=== PATIENT | female | born 1990 | race African-American/Black ===

== ENCOUNTER 2017-02-26 17:35 | Emergency (ER) | payer SELFPAY ==
[2017-02-26 18:02] LABS: Bilirubin Negative (Negative); Blood, Urine Negative (Negative); Glucose, Urine (Dipstick) Negative (Negative); Ketone, Urine Negative (Negative); Nitrite Negative (Negative); Protein, Urine (Dipstick) Negative (Neg-Trace)
[2017-02-26 18:03] LABS: Bacteria/HPF Rare-Few HPF (None Seen); Hyaline Casts/LPF 0-3 HYALINE CAST LPF (0-3 Hyaline); WBC/HPF 21-50 HPF (0-3)
[2017-02-26 18:14] LABS: Trichomonas/HPF 1+ HPF (None Seen); Yeast-All Forms None Seen HPF (None Seen)
[2017-02-26] MEDS ORDERED: Oxymetazoline HCl 0.05% ( 15 ML ) ONE (18:36)
== END 2017-02-26 18:42 | disposition home or self-care (01) ==
LOC: ERS 17:35
DX: O99.351 Diseases of the nervous system complicating pregnancy, first trimester (principal); G44.209 Tension-type headache, unspecified, not intractable; O98.311 Other infections with a predominantly sexual mode of transmission complicating pregnancy, first trimester; A59.9 Trichomoniasis, unspecified; O16.1 Unspecified maternal hypertension, first trimester; Z3A.08 8 weeks gestation of pregnancy
CPT/HCPCS: 81003; 81015; 87086; 99284

== ENCOUNTER 2017-07-21 04:23 | Day surgery (SDC) | payer OTHER ==
[2017-07-21 04:57] VITALS: BP 134/77; TEMP 98.7; BMI 48.4
--- NOTE | 2017-07-21 05:14 | PDOC.LDHP ---
Labor and Delivery H&P Chief complaint: abdominal pain, other (Patient of Dr Rincon at the [facility], here for persistant epigastric discomfort. Denies contractions, or LOF. Good FM.) HPI: 26 yo with EDC 10/12, placing her at 28 weeks and 1 day with persistent epigastric discomfort. No relief with antacids. No real radiation. No fevers, no nausea. No diarrhea. No chest pain. Review of systems: complete ROS done and as HPI. Current gestational age (weeks): 28 (1 day) Due date: 10/12/17 Dating criteria: last menstrual period Grav: 4 Para: 3 Abnormal US findings: No Past Medical History: HX WPW s/p ablation. Hx CHTN on methyldopa 250mg TID. 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: Hx trich in past Current medications: other (methly dopa) Previous surgical history: other (WPW) Allergies/Adverse Reactions: Allergies Allergy/AdvReac Type Severity Reaction Status Date / Time lisinopril Allergy Intermediate Swollen Verified 07/21/17 04:48 Lips naproxen Allergy Intermediate Swollen Verified 07/21/17 04:48 Lips - Physical Exam Vital signs reviewed and normal: yes (BP 130/70, afebrile) General: NAD Heart: RRR Lungs: CTAB Abdomen: gravid FHT: category 1 [place] contractions every: no ctx - Plan Plan: observation in L&D, other (Assessment: possible GERD vs GD pathology: Plan : 1. CBC, CMP, RUQ sono 2. Monitors for now 3. No acute distress)
[2017-07-21 05:33] LABS: #Basophils 0.1 thou/uL (0.0-0.2); #Eosinphils 0.1 thou/uL (0.0-0.7); #Lymphocytes 3.1 thou/uL (1.20-3.40); #Monocytes 0.8 thou/uL (0.11-0.59); %Basophils 0.8 % (0.0-1.0); %Eosinophils 1.2 % (0.0-10.0); %Lymphocytes 25.6 % (21.0-51.0); %Monocytes 6.5 % (0.0-10.0); Hemoglobin 9.9 g/dL (12.0-16.0); Mean Corpuscular HGB CONC 33.5 g/dL (32.0-36.0); Mean Corpuscular Hemoglobin 29.1 pg (27.0-31.0); Mean Corpuscular Volume 86.7 fl (81.0-99.0); Mean Platelet Volume 7.3 fL (7.4-10.4); Platelet Count 263 thou/uL (130-400); RBC Distribution Width 13.2 % (11.5-14.5); Red Blood Cell (RBC) Count 3.39 mill/uL (4.20-5.40); White Blood Cell (WBC) Count 12.1 thou/uL (4.8-10.8)
[2017-07-21 05:59] LABS: ALT (SGPT) 7 U/L (8-55); AST (SGOT) 8 U/L (5-34); Albumin 3.1 g/dL (3.5-5.0); Alkaline Phosphatase 89 U/L (40-150); Anion Gap 13 mmol/L (10-20); BUN (Urea Nitrogen) 5 mg/dL (7.0-18.7); Bilirubin, Total 0.2 mg/dL (0.2-1.2); Calc. Creatinine Clearance 282 mL/min (70-130); Calcium 8.6 mg/dL (7.8-10.44); Carbon Dioxide 21 mmol/L (22-29); Chloride 106 mmol/L (98-107); Estimated GFR-MDRD Greater than 90; Globulin 2.9 g/dL (2.4-3.5); Glucose 97 mg/dL (70-105); Potassium 3.7 mmol/L (3.5-5.1); Sodium 136 mmol/L (136-145)
--- NOTE | 2017-07-21 06:14 | PDOC.EVN ---
Event Note - Event Note Event Note: Follow up: Spoke with US cogeneration technician: GB stone seen that is at BD neck but not obstructed. No GB wall thoickening. No murphys sign during exam. WBC borderline at 12 LFTS wnl I will order Bentyl 20mg IM x 1 now and follow. Likely home this AM as not obstructed with Gen Surgery outpatient follow up.
--- NOTE | 2017-07-21 08:20 | ULT ---
PRELIMINARY REPORT/[facility]/EMERGENCY AFTER HOURS PROCEDURE: EXAM: US Abdomen Limited, Right Upper Quadrant EXAM DATE/TIME: Exam ordered 07/21/2017 5:44 AM CLINICAL HISTORY: 26 years old, female; Pain; Other: Upper abd pain at 27wks preg; TECHNIQUE: Real-time ultrasound of the right upper quadrant with image documentation. COMPARISON: No relevant prior studies available. FINDINGS: Liver: Normal. No mass. No intrahepatic bile duct dilation. Gallbladder: There is a 2 cm stone at the gallbladder neck. A negative sonographic Medeiros sign is rep orted. Trace gallbladder wall thickening up to 3 mm, nonspecific. Common bile duct: Common bile duct measures approximately 4. No stones. No dilation. Pancreas: The pancreas appears normal. Right kidney: RIGHT kidney measures 14.1 x 3.8 x 6.8 cm. No stones. No hydronephrosis. IMPRESSION: Cholelithiasis without ultrasound evidence of acute cholecystitis. Thank you for allowing us to participate in the care of your patient. Dictated and Authenticated by: Lew Hernandez MD 07/21/2017 6:45 AM Central Time ([place] & [place]) FINAL REPORT EMERGENCY AFTER HOURS STUDY: ULTRASOUND ABDOMEN LIMITED: (RIGHT UPPER QUADRANT) DATE: 07/21/17. TIME: 5:56 a.m. HISTORY: A 26-year-old female in late second trimester with right upper quadrant abdominal pain. FINDINGS: Gallbladder: A 20 mm calculus lodged in the neck of gallbladder. A small amount of sludge. Normal w all thickness, 3 mm. No sonographic Medeiros's sign. No pericholecystic fluid or edema. Common duct: 4 mm. Liver: Normal. Pancreas: Nonspecific sonographic appearance. Right kidney: No hydronephrosis. This report agrees with preliminary report by [facility]. IMPRESSION: 1. Positive for cholelithiasis. 2. No sonographic evidence of acute cholecystitis. MAYCOL Reddy POS: MODE
== END 2017-07-21 07:16 | disposition home or self-care (01) ==
LOC: L&D/OP 04:23
PROVIDERS: ATTEND Obstetrics & Gynecology
DX: O99.89 Other specified diseases and conditions complicating pregnancy, childbirth and the puerperium (principal); R10.13 Epigastric pain; O10.913 Unspecified pre-existing hypertension complicating pregnancy, third trimester; Z3A.28 28 weeks gestation of pregnancy; Z79.899 Other long term (current) drug therapy; Z88.8 Allergy status to other drugs, medicaments and biological substances; Z88.6 Allergy status to analgesic agent
CPT/HCPCS: 36415; 59025; 76705; 80053; 85025; 99283

== ENCOUNTER 2017-12-01 16:43 | Emergency (ER) | payer OTHER ==
[2017-12-01] MEDS ORDERED: Ketorolac Tromethamine 30 MG/ML VIAL ONE (17:46)
== END 2017-12-01 17:57 | disposition home or self-care (01) ==
LOC: ERS 16:43
DX: K02.9 Dental caries, unspecified (principal); I10 Essential (primary) hypertension; I45.6 Pre-excitation syndrome; Z87.891 Personal history of nicotine dependence
CPT/HCPCS: 96372; J1885

== ENCOUNTER 2017-12-04 01:28 | Emergency (ER) | payer OTHER | END 2017-12-04 02:21 | disposition home or self-care (01) | LOC: ERS 01:28 | DX: K08.89 Other specified disorders of teeth and supporting structures (principal); I10 Essential (primary) hypertension; I45.6 Pre-excitation syndrome; Z87.891 Personal history of nicotine dependence; Z79.899 Other long term (current) drug therapy | CPT/HCPCS: 99282 ==

== ENCOUNTER 2017-12-16 12:14 | Emergency (ER) | payer OTHER | END 2017-12-16 14:24 | disposition left against medical advice (07) | LOC: ERS 12:14 | DX: Z53.21 Procedure and treatment not carried out due to patient leaving prior to being seen by health care provider (principal) ==

== ENCOUNTER 2018-01-25 19:14 | Emergency (ER) | payer OTHER, SELFPAY | END 2018-01-25 20:02 | disposition home or self-care (01) | LOC: ERS 19:14 | DX: K12.0 Recurrent oral aphthae (principal); K02.9 Dental caries, unspecified; I10 Essential (primary) hypertension; I45.6 Pre-excitation syndrome; Z87.891 Personal history of nicotine dependence; Z79.899 Other long term (current) drug therapy | CPT/HCPCS: 99282 ==

== ENCOUNTER 2018-11-10 17:14 | Emergency (ER) | payer SELFPAY | END 2018-11-10 18:59 | disposition home or self-care (01) | LOC: ERS 17:14 | DX: B35.4 Tinea corporis (principal); I10 Essential (primary) hypertension; G20 Parkinson's disease; Z87.891 Personal history of nicotine dependence | CPT/HCPCS: 99282 ==

== ENCOUNTER 2018-11-14 02:53 | Emergency (ER) | payer SELFPAY ==
[2018-11-14] MEDS ORDERED: Ondansetron PF 4 MG/2 ML Vial ONE (03:18)
[2018-11-14] MEDS ORDERED: Morphine 4 MG/ML VIAL ONE ×2 (03:18→03:44)
[2018-11-14 03:39] LABS: Bilirubin Negative (Negative); Blood, Urine Trace (Negative); Glucose, Urine (Dipstick) Negative (Negative); Leukocyte Small (Negative); Nitrite Negative (Negative); Protein, Urine (Dipstick) Negative (Neg-Trace); Urobilinogen 0.2 mg/dL (0.2-1.0)
[2018-11-14 03:40] LABS: Clarity Clear (Clear)
[2018-11-14 03:47] LABS: Bacteria/HPF None Seen HPF (None Seen); Squamous Epithelial 0-3 HPF (0-3); WBC/HPF 0-3 HPF (0-3)
[2018-11-14 03:48] LABS: Hyaline Casts/LPF NONE SEEN LPF (0-3 Hyaline)
[2018-11-14 03:52] LABS: #Eosinphils 0.4 thou/uL (0.0-0.7); #Lymphocytes 4.2 thou/uL (1.20-3.40); #Monocytes 0.6 thou/uL (0.11-0.59); #Neutrophils 4.6 thou/uL (1.40-6.50); %Basophils 0.2 % (0.0-1.0); %Eosinophils 3.9 % (0.0-10.0); %Lymphocytes 43.3 % (21.0-51.0); %Neutrophils 46.7 % (42.0-75.0); Hemoglobin 11.3 g/dL (12.0-16.0); Mean Corpuscular HGB CONC 32.4 g/dL (32.0-36.0); Mean Corpuscular Hemoglobin 26.4 pg (27.0-31.0); Mean Corpuscular Volume 81.6 fL (78.0-98.0); Mean Platelet Volume 7.8 fL (7.4-10.4); Platelet Count 291 thou/uL (130-400); RBC Distribution Width 14.9 % (11.5-14.5); Red Blood Cell (RBC) Count 4.26 mill/uL (4.20-5.40); White Blood Cell (WBC) Count 9.8 thou/uL (4.8-10.8)
[2018-11-14 03:55] LABS: BHCG - Serum Negative (NEGATIVE); Pregs Control Background? CLEAR/WHITE (CLR/WHITE); Pregs Control Bar Appear? YES (CONTROL BAR)
[2018-11-14 04:09] LABS: ALT (SGPT) 19 U/L (8-55); AST (SGOT) 18 U/L (5-34); Albumin 3.9 g/dL (3.5-5.0); Alkaline Phosphatase 73 U/L (40-150); Anion Gap 15 mmol/L (10-20); BUN (Urea Nitrogen) 7 mg/dL (7.0-18.7); Bilirubin, Total 0.2 mg/dL (0.2-1.2); Calc. Creatinine Clearance 0 mL/min (70-130); Calcium 8.9 mg/dL (7.8-10.44); Carbon Dioxide 23 mmol/L (22-29); Chloride 105 mmol/L (98-107); Estimated GFR-MDRD Greater than 90; Globulin 3.1 g/dL (2.4-3.5); Glucose 124 mg/dL (70-105); Potassium 3.6 mmol/L (3.5-5.1); Sodium 139 mmol/L (136-145)
--- NOTE | 2018-11-14 07:51 | ULT ---
PRELIMINARY REPORT/[facility]/EMERGENCY AFTER HOURS PROCEDURE: EXAM: US Abdomen Limited, Right Upper Quadrant EXAM DATE/TIME: 11/14/2018 3:37 AM CLINICAL HISTORY: 28 years old, female; Nausea and vomiting and other: Diarrhea; Abdominal pain; Localized; Other: Epig astric to ruq TECHNIQUE: Imaging protocol: Real-time ultrasound of the abdomen with image documentation. Examination was focus ed on the right upper quadrant. COMPARISON: No relevant prior studies available. FINDINGS: Liver: Hepatic steatosis. Gallbladder: Gallstone at the neck of the gallbladder. Gallbladder is distended. No gallbladder wall thickening or pericholecystic fluid. Sonographic Medeiros's and reported as positive. Common bile duct: Normal. No stones. No dilation. Pancreas: Visualized pancreas is unremarkable. Right kidney: Normal. No mass. No hydronephrosis. IMPRESSION: Distended gallbladder with gallstone at the neck and reported positive sonographic Medeiros sign raises the possibility of acute cholecystitis; however, there is no gallbladder wall thickening or pericholecystic fluid to support a diagnosis of acute cholecystitis. Thank you for allowing us to participate in the care of your patient. Dictated and Authenticated by: Jorje Hubbard MD 11/14/2018 5:25 AM Central Time ([place] & [place]) FINAL REPORT: GALLBLADDER ULTRASOUND: I agree with the report given to Dr. Jorje Hubbard of [facility]. Transcribed Date/Time: 11/14/2018 8:10 AM
== END 2018-11-14 05:08 | disposition home or self-care (01) ==
LOC: ERS 02:53
DX: K80.50 Calculus of bile duct without cholangitis or cholecystitis without obstruction (principal); I10 Essential (primary) hypertension; Z87.891 Personal history of nicotine dependence
CPT/HCPCS: 76705; 80053; 81003; 81015; 83605; 84703; 85025; 96374; 96375; J2270; J2405

== ENCOUNTER 2019-11-20 00:33 | Inpatient (IN) | payer SELFPAY, OTHER ==
[2019-11-20] MEDS ORDERED: Morphine 4 MG/ML VIAL ONE ×2 (01:14→02:05)
[2019-11-20 01:21] LABS: BHCG - Serum Negative (NEGATIVE); Pregs Control Background? CLEAR/WHITE (CLR/WHITE); Pregs Control Bar Appear? YES (CONTROL BAR)
[2019-11-20 01:29] LABS: #Basophils 0.1 thou/uL (0.0-0.2); #Eosinphils 0.5 thou/uL (0.0-0.7); #Lymphocytes 4.4 thou/uL (1.20-3.40); #Monocytes 0.6 thou/uL (0.11-0.59); #Neutrophils 5.4 thou/uL (1.40-6.50); %Basophils 1.1 % (0.0-1.0); %Eosinophils 4.5 % (0.0-10.0); %Monocytes 5.4 % (0.0-10.0); %Neutrophils 49.1 % (42.0-75.0); Anisocytosis SLIGHT = 6-15 cells (100X) (0-5/hpf); Hemoglobin 12.1 g/dL (12.0-16.0); MDiff Complete? YES; Mean Corpuscular HGB CONC 32.4 g/dL (32.0-36.0); Mean Corpuscular Hemoglobin 26.8 pg (27.0-31.0); Mean Corpuscular Volume 82.8 fL (78.0-98.0); Mean Platelet Volume 8.2 fL (7.4-10.4); Platelet Count 340 thou/uL (130-400); RBC Distribution Width 15.3 % (11.5-14.5); Red Blood Cell (RBC) Count 4.51 mill/uL (4.20-5.40); White Blood Cell (WBC) Count 11.1 thou/uL (4.8-10.8)
[2019-11-20 01:48] LABS: ALT (SGPT) 40 U/L (8-55); AST (SGOT) 40 U/L (5-34); Albumin 4.1 g/dL (3.5-5.0); Alkaline Phosphatase 71 U/L (40-110); Anion Gap 14 mmol/L (10-20); BUN (Urea Nitrogen) 7 mg/dL (7.0-18.7); Bilirubin, Total 0.2 mg/dL (0.2-1.2); Calc. Creatinine Clearance 0 mL/min (70-130); Calcium 8.9 mg/dL (7.8-10.44); Carbon Dioxide 24 mmol/L (22-29); Chloride 103 mmol/L (98-107); Estimated GFR-MDRD 78; Globulin 3.4 g/dL (2.4-3.5); Glucose 96 mg/dL (70-105); Lipase 16 U/L (8-78); Potassium 3.8 mmol/L (3.5-5.1); Protein, Total 7.5 g/dL (6.0-8.3); Sodium 137 mmol/L (136-145)
[2019-11-20 02:37] LABS: Bacteria/HPF None Seen HPF (None Seen); Bilirubin Negative (Negative); Blood, Urine Trace (Negative); Calcium Oxalate Crystals 2+ HPF (None Seen); Clarity Turbid (Clear); Glucose, Urine (Dipstick) Normal (Negative); Ketone, Urine Trace mg/dL (Negative); Leukocyte Negative Leu/uL (Negative); Nitrite Negative (Negative); Protein, Urine (Dipstick) 200 mg/dL (Neg-Trace); Specific Gravity, Urine 1.038 (1.002-1.036); Squamous Epithelial 21-50 HPF (0-3)
[2019-11-20] MEDS ORDERED: Ondansetron ODT 4 MG TAB SL PRN (02:55)
[2019-11-20] MEDS ORDERED: Ondansetron PF 4 MG/2 ML Vial IVP PRN ×2 (02:55→23:25)
[2019-11-20] MEDS ORDERED: Morphine 4 MG/ML VIAL SLOW IVP PRN ×2 (02:55→11:15)
[2019-11-20 03:40] VITALS: BMI 49.8
[2019-11-20] MEDS: Sodium Chloride 0.9% 1,000 ML IV SCH ×2 (04:31→11:57)
--- NOTE | 2019-11-20 09:01 | ULT ---
PRELIMINARY REPORT/[facility]/EMERGENCY AFTER HOURS PROCEDURE Receipt of this report by the clinical staff was confirmed with Magdalena Buchanan MD by Mike Ramachandran on Nov 20, 2019 01:58:00 CDT. Addendum electronically signed by Keyla Ramachandran on November 20, 2019 2:00:08 AM CDT EXAM: US Abdomen Limited, Right Upper Quadrant. CLINICAL HISTORY: Epigastric pain that radiates to back, n/v TECHNIQUE: Real-time ultrasound of the right upper quadrant with image documentation. COMPARISON: None provided. FINDINGS: LIVER: Appears enlarged at 19 cm and demonstrates fatty infiltration. GALLBLADDER: Gallbladder appears distended with non-mobile cholelithiasis. No wall thickening. Pericholecystic fl uid is noted with a positive sonographic Medeiros's sign. COMMON BILE DUCT: No dilation. Measures 3.8 mm PANCREAS: Unremarkable as visualized. The distal pancreas is obscured by overlying bowel gas. RIGHT KIDNEY: Unremarkable. No hydronephrosis. Measures 11.7 cm IMPRESSION: The findings are consistent with acute cholecystitis ELECTRONICALLY SIGNED BY: Juan Jackson MD Nov 20, 2019 1:55:16 AM CDT This report is intended for review by the ordering physician only, in accordance of law. If you recei ve this report in error, please call [facility] at [phone]. FINAL REPORT EMERGENT AFTER HOURS RIGHT UPPER QUADRANT ULTRASOUND: IMPRESSION: Agree with the preliminary interpretation. Cholelithiasis and positive sonographic Medeiros's sign. C orrelate for acute cholecystitis. POS: JMChavo
[2019-11-20] MEDS: Famotidine/PF 20 mg/2ml Vial SLOW IVP SCH ×2 (10:09→22:13)
[2019-11-20] MEDS ORDERED: Rocuronium Bromide 10 MG/ML (10ML VIAL) ONE (13:27)
[2019-11-20] MEDS ORDERED: Labetalol HCl 100 MG/20 ML VIAL ONE (13:27)
[2019-11-20] MEDS ORDERED: Ondansetron PF 4 MG/2 ML Vial ONE (13:27)
[2019-11-20] MEDS ORDERED: Lidocaine 1% PF 5 ML VIAL ONE (13:27)
[2019-11-20] MEDS ORDERED: Glycopyrrolate 0.2 MG/ML 5 ML SYRINGE ONE (13:27)
[2019-11-20] MEDS ORDERED: Dexamethasone 20 MG/5 ML VIAL ONE (13:27)
[2019-11-20] MEDS ORDERED: PROPOFOL 200 MG/20 ML VIAL ONE (13:27)
[2019-11-20] MEDS ORDERED: Metoprolol Tartrate 5 MG/5 ML VIAL ONE (17:01)
[2019-11-20] MEDS ORDERED: hydrALAZINE 20 MG/ML VIAL ONE (17:22)
--- NOTE | 2019-11-20 19:23 | HP ---
HISTORY OF PRESENT ILLNESS: Ms. Perez is a 29-year-old woman, who presented to emergency department with recurrent epigastric right upper quadrant abdominal pain since yesterday. Pain is initially reported at 7/10 and intensified to 10/10, for which the patient showed up in the Emergency Department. The pain is associated with multiple episodes of nausea, but no emesis. She denies any fevers or chills. PAST MEDICAL HISTORY: Significant for essential hypertension. PAST SURGICAL HISTORY: She denies any previous surgeries. SOCIAL HISTORY: She is a G5, . She admits to smoking about 7 cigarettes a day. Denies any ethanol or illicit drug abuse. PREHOSPITALIZATION MEDICATIONS: Include, 1. Carvedilol 25 mg p.o. b.i.d. 2. Hydrochlorothiazide 12.5 mg p.o. b.i.d. ALLERGIES: LISINOPRIL, WHICH GIVES HER HIVES AND NAPROXEN, WHICH CAUSES ANAPHYLACTIC REACTION. FAMILY HISTORY: She denies any family history of diabetes mellitus, heart disease, or cancer. There is family history of hypertension nevertheless. REVIEW OF SYSTEMS: Ten-point review of systems is essentially unremarkable except as stated in past medical history and chief complaint. PHYSICAL EXAMINATION: GENERAL: This reveals a 29-year-old normally developed woman, who is otherwise coherent and interactive and appears stated age. The patient is alert and oriented x3, appears to be in no acute distress at time of my evaluation. VITAL SIGNS: Include blood pressure 143/96, pulse is 65, respiratory rate is 16, temperature is 97.4 degrees Fahrenheit oxygen, oxygen saturation is 98% on room air. HEENT: Normocephalic and atraumatic. She has no scleral icterus present. HEART: Reveals regular rate and rhythm. No murmurs or gallops auscultated. LUNGS: Clear to auscultation bilaterally. Her breathing is regular and unlabored. ABDOMEN: Soft and obese. She has right upper quadrant tenderness to palpation. She has a positive Medeiros sign. Liver and spleen are otherwise nonpalpable below costal margin. NEUROLOGIC: Reveals no focal deficits present. LABORATORY FINDINGS: Include a CBC with 11,100 white blood cells, hemoglobin and hematocrit 12.1 and 37.4 respectively. The platelet count is 240,000. Metabolic profile; sodium 137, potassium 3.8, chloride is 103, bicarb is 24, BUN 7, creatinine is 1.01, glucose is 96, total bilirubin is 0.2, AST and ALT are 40 and 40 respectively. Serum test is negative. Serum lipase is normal at 16. Serology test for COVID is negative. I have personally reviewed the abdominal ultrasound, which was obtained this morning and remarkable for a large solitary gallstone impacting gallbladder neck. Common bile duct is normal in diameter for this patient's age at 3.8 mm in diameter. There is small pericholecystic fluid present. IMPRESSION: 1. Acute cholecystitis with cholelithiasis. 2. History of essential hypertension. PLAN: 1. Laparoscopic cholecystectomy. 2. The above findings and plan have been discussed with the patient. 3. I have advised of the risks and benefits of the proposed surgery to include, but not limited to bleeding, infection, injury to bile duct or surrounding structures. 4. This information was given to the patient in the presence of her nurse. 5. She indicates understanding of the information given. I have answered her questions. The patient is going to consent for this admission and surgical intervention. Job ID: [id number]
[2019-11-20] MEDS ORDERED: Fentanyl 100 MCG/2 ML VIAL ONE ×2 (21:07→23:35)
[2019-11-20] MEDS ORDERED: Bupivacaine 0.25% HCL 30 ML VIAL ONE (21:13)
[2019-11-20] MEDS ORDERED: Lidocaine 1% w/Epinephrine 1:100K 20 ML VIAL ONE (21:13)
[2019-11-20] MEDS ORDERED: traMADol HCl 50 MG TAB PO PRN ×2 (23:19)
[2019-11-20] MEDS ORDERED: Promethazine HCl 25 MG/ML VIAL IM PRN (23:22)
[2019-11-20] MEDS ORDERED: Promethazine HCl 25 MG/ML VIAL SLOW IVP PRN (23:22)
[2019-11-20] MEDS ORDERED: Ondansetron HCl/PF 4 MG/2 ML Vial IVP PRN (23:22)
[2019-11-20] MEDS ORDERED: Meperidine HCl/PF 25 MG/ML VIAL SLOW IVP PRN (23:22)
--- NOTE | 2019-11-21 00:03 | OP ---
DATE OF PROCEDURE: 11/20/2019 PREOPERATIVE DIAGNOSES: 1. Acute cholecystitis, cholelithiasis. 2. Morbid obesity. POSTOPERATIVE DIAGNOSES: 1. Acute cholecystitis, cholelithiasis. 2. Morbid obesity. OPERATION PERFORMED: Laparoscopic cholecystectomy. ANESTHESIA: General endotracheal. ESTIMATED BLOOD LOSS: 20 mL. FLUIDS GIVEN: 1000 mL crystalloids. COUNTS: Sponge and instrument counts were verified as correct x2. COMPLICATIONS: None apparent at the time of the operation. INDICATIONS FOR OPERATION: A 29-year-old morbidly obese woman, presented with recurrent epigastric right upper quadrant abdominal pain. Clinical and radiographic examination was consistent with acute cholecystitis, cholelithiasis, for which the patient was brought to the operating room for cholecystectomy. Findings are consistent with distended gallbladder in the usual anatomic location, partially encased by omental adhesions. DESCRIPTION OF PROCEDURE: Informed consent was obtained from the patient. She was brought to the operating room and placed in supine position. Following general anesthesia, the abdomen was sterilely prepped and draped in usual fashion. The skin below the umbilicus was infiltrated with 0.25% Marcaine with epinephrine. A small curvilinear infraumbilical incision was made using 11 scalpel. Umbilical stalk was grasped with Valeria and elevated. Veress needle was inserted through the incision and placed in the peritoneal cavity through which the abdomen was insufflated with 4 L of CO2 gas. Intraabdominal pressure noted at 2 mmHg. Following abdominal insufflation, Veress needle was removed and a 5 mm trocar introduced using a Visiport under laparoscopy. Laparoscopy confirmed proper placement of the port, no injuries to underlying structures. Additional laparoscopy reveals gallbladder in the usual anatomic location, partially encased by omental adhesions. Under direct laparoscopy, a 12 mm epigastric and two 5 mm right lateral subcostal ports were placed after the overlying skin were infiltrated with 0.25% Marcaine with epinephrine. Appropriate incision was made. The patient was placed in a reverse Trendelenburg position, rotated to her left. I introduced a [place] dissector with cautery, using this to take down omental adhesions. Prestige grasper was introduced through the right lateral subcostal port, grasping the fundus of the gallbladder, which was elevated cephalad. A second Prestige grasper was introduced through the right medial subcostal port, grasping the Freida pouch, which was retracted laterally. I opened the peritoneum of the gallbladder at the infundibulum. Cystic duct was carefully dissected free from surrounding structures. The cystic artery was also dissected free from surrounding structures. Both structures were followed as they entered the gallbladder. The common bile duct was not completely delineated. The cystic duct was divided between clips as it enters the gallbladder, applying 2 clips proximally and 1 clip at the junction of the cystic artery and gallbladder. Cystic duct was also divided between clips in a similar fashion. The gallbladder itself was removed from the liver bed using cautery with good hemostasis. This was delivered off the abdominal cavity using EndoCatch. Operative site was inspected, there was minor oozing from the gallbladder fossa. Immediate hemostasis was achieved using Luzma. Fascia of the epigastric port was closed using 0 Vicryl suture and Endo Close device on the laparoscopy. The abdomen was desufflated. All ports and instruments were removed and accounted for. Skin incision was closed using 4-0 Monocryl suture in subcuticular fashion. Dermabond was applied over incisional closure. The patient tolerated the operation without any apparent complication and was returned to recovery room in satisfactory condition. Job ID: [id number]
[2019-11-21] MEDS: Acetaminophen 500 MG TAB PO SCH ×2 (00:14→06:20)
[2019-11-21] MEDS ORDERED: hydrALAZINE 20 MG/ML VIAL SLOW IVP PRN (03:15)
[2019-11-21] MEDS ORDERED: Morphine 4 MG/ML VIAL SLOW IVP SCH (03:30)
[2019-11-21 05:45] LABS: #Lymphocytes 0.7 thou/uL (1.20-3.40); #Monocytes 0.2 thou/uL (0.11-0.59); #Neutrophils 6.9 thou/uL (1.40-6.50); %Basophils 0.6 % (0.0-1.0); %Eosinophils 0.2 % (0.0-10.0); %Lymphocytes 8.4 % (21.0-51.0); %Monocytes 2.4 % (0.0-10.0); %Neutrophils 88.5 % (42.0-75.0); Hemoglobin 11.5 g/dL (12.0-16.0); Mean Corpuscular HGB CONC 32.4 g/dL (32.0-36.0); Mean Corpuscular Hemoglobin 26.9 pg (27.0-31.0); Mean Corpuscular Volume 83.1 fL (78.0-98.0); Mean Platelet Volume 7.9 fL (7.4-10.4); Platelet Count 304 thou/uL (130-400); RBC Distribution Width 15.3 % (11.5-14.5); Red Blood Cell (RBC) Count 4.26 mill/uL (4.20-5.40); White Blood Cell (WBC) Count 7.8 thou/uL (4.8-10.8)
[2019-11-21] MEDS ORDERED: Gabapentin 300 MG CAP PO SCH (06:00)
[2019-11-21 06:08] LABS: ALT (SGPT) 42 U/L (8-55); AST (SGOT) 55 U/L (5-34); Albumin 3.9 g/dL (3.5-5.0); Alkaline Phosphatase 67 U/L (40-110); Anion Gap 13 mmol/L (10-20); BUN (Urea Nitrogen) 6 mg/dL (7.0-18.7); Bilirubin, Total 0.3 mg/dL (0.2-1.2); Calc. Creatinine Clearance 198 mL/min (70-130); Calcium 9.1 mg/dL (7.8-10.44); Carbon Dioxide 23 mmol/L (22-29); Chloride 107 mmol/L (98-107); Estimated GFR-MDRD 90; Glucose 163 mg/dL (70-105); Phosphorus 3.6 mg/dL (2.3-4.7); Potassium 3.7 mmol/L (3.5-5.1); Protein, Total 6.9 g/dL (6.0-8.3); Sodium 139 mmol/L (136-145)
[2019-11-21 07:19] VITALS: BP 174/90; TEMP 97.5
[2019-11-21] MEDS ORDERED: Carvedilol 6.25 MG TAB PO SCH ×2 (09:00)
[2019-11-21] MEDS ORDERED: HYDROCHLOROTHIAZIDE PO SCH (09:00)
[2019-11-21] MEDS ORDERED: Hydrochlorothiazide 25 MG TAB PO SCH (09:00)
[2019-11-21] MEDS: Famotidine/PF 20 mg/2ml Vial SLOW IVP SCH (13:03)
--- NOTE | 2019-11-22 02:47 | DIS ---
DATE OF ADMISSION: 11/20/2019 DATE OF DISCHARGE: 11/21/2019 ADMITTING PHYSICIAN: Juanito Patel DO DISCHARGING PHYSICIAN: Juanito Patel DO ADMITTING DIAGNOSES: Acute cholecystitis and cholelithiasis. DISCHARGE DIAGNOSES: Acute cholecystitis and cholelithiasis. PROCEDURE PERFORMED: Laparoscopic cholecystectomy on 11/20/2019. HISTORY AND HOSPITAL COURSE: A 29-year-old morbidly obese woman, presented with recurrent epigastric right upper quadrant abdominal pain. Clinical and radiographic examination were consistent with acute cholecystitis and cholelithiasis, for which the patient underwent an uneventful laparoscopic cholecystectomy last night. Postop day #1, she is ambulating with minimum difficulty. Her pain is adequately controlled on oral analgesics. She has remained hemodynamically stable and afebrile through her hospitalization. PHYSICAL EXAMINATION: VITAL SIGNS: Today includes blood pressure 138/79, pulse 93, respiratory rate is 16, temperature is 97.5 degrees Fahrenheit, and oxygen saturation is 98% on room air. ABDOMEN: Soft. Incisions are intact, clean, and dry with incisional tenderness to palpation. She clearly has no peritoneal signs on examination. LABORATORY FINDINGS: Include a CBC with 7800 white blood cells and hemoglobin and hematocrit stable at 11.5 and 35.4 respectively. Platelet count is 304,000. Metabolic profile includes sodium 139, potassium 3.7, chloride is 107, bicarb is 13, BUN 6, creatinine 0.90, and glucose 163. AST and ALT stable 55 and 42 respectively. Total bilirubin remains normal at 0.3. DISCHARGE INSTRUCTIONS: The patient will be discharged home today with the following instructions. 1. She follows up with me in the surgery clinic on 12/03/2019 at 10:30 a.m. 2. She is advised to resume all pre-hospital medications as prescribed by her primary care physician. 3. She is to increase activity and ambulate briskly to avoid complications of venous thromboembolism. 4. She may take Tylenol 1000 mg p.o. q.6 hours alternating this with tramadol 50 mg 1 to 2 p.o. q.6 hours p.r.n. breakthrough pain. 5. She may shower effective 11/22/2019. 6. She is to avoid weightlifting in excess of 20 pounds until she has been released by me. 7. She is to call me with any questions or problems including exacerbation of abdominal pain, abnormal drainage from incisional wounds, fever in excess of 101 degrees Fahrenheit, and intolerance to oral intake. 8. Instructions given to the patient in the presence of her nurse. 9. She indicates understanding of information given. 10. I have answered her questions. 11. The patient has expressed gratitude for the care rendered to her during this hospitalization and surgery. Job ID: [id number]
== END 2019-11-21 11:50 | disposition home or self-care (01) | DRG 418 ==
LOC: ERS 00:33 → SURG B 02:14
PROVIDERS: ADMIT Specialist; ATTEND Specialist
PROC: 0FT44ZZ Resection of Gallbladder, Percutaneous Endoscopic Approach (ICD-10-PCS; principal; 2019-11-20)
DX: K80.00 Calculus of gallbladder with acute cholecystitis without obstruction (principal); Z68.42 Body mass index [BMI] 45.0-49.9, adult; E66.01 Morbid (severe) obesity due to excess calories; I10 Essential (primary) hypertension; F17.210 Nicotine dependence, cigarettes, uncomplicated; I45.6 Pre-excitation syndrome; Z11.59 Encounter for screening for other viral diseases; Z88.8 Allergy status to other drugs, medicaments and biological substances; Z79.899 Other long term (current) drug therapy
CPT/HCPCS: 36415; 76705; 80053; 81003; 81015; 83690; 83735; 84100; 84703; 85025; 88304; 93005; 96365; 96375; 96376; J0360; J0694; J1100; J1956; J2001; J2270; J2405; J2704; J3010; S0020; S0028; U0002

== ENCOUNTER 2021-11-13 14:05 | Emergency (ER) | payer SELFPAY ==
[2021-11-13] MEDS ORDERED: Lorazepam 2 MG/ML VIAL ONE (14:27)
[2021-11-13 14:48] LABS: #Basophils 0.1 thou/uL (0.0-0.2); #Eosinphils 0.2 thou/uL (0.0-0.7); #Lymphocytes 2.2 thou/uL (1.20-3.40); #Monocytes 0.6 thou/uL (0.11-0.59); #Neutrophils 5.8 thou/uL (1.40-6.50); %Basophils 1.3 % (0.0-1.0); %Eosinophils 2.3 % (0.0-10.0); %Lymphocytes 24.5 % (21.0-51.0); %Monocytes 6.3 % (0.0-10.0); %Neutrophils 65.5 % (42.0-75.0); Hemoglobin 11.5 g/dL (12.0-16.0); Mean Corpuscular Hemoglobin 26.3 pg (27.0-31.0); Mean Corpuscular Volume 84.8 fL (78.0-98.0); Mean Platelet Volume 8.7 fL (7.4-10.4); Platelet Count 297 thou/uL (130-400); Red Blood Cell (RBC) Count 4.39 mill/uL (4.20-5.40); White Blood Cell (WBC) Count 8.8 thou/uL (4.8-10.8)
[2021-11-13 15:05] LABS: ALT (SGPT) 72 U/L (8-55); AST (SGOT) 143 U/L (5-34); Albumin 4.3 g/dL (3.5-5.0); Alkaline Phosphatase 85 U/L (40-110); Anion Gap 20 mmol/L (10-20); BUN (Urea Nitrogen) 8 mg/dL (7.0-18.7); Bilirubin, Total 1.5 mg/dL (0.2-1.2); CK (CPK) 1194 U/L (29-168); Calc. Creatinine Clearance 0 mL/min (70-130); Calcium 9.5 mg/dL (7.8-10.44); Carbon Dioxide 22 mmol/L (22-29); Chloride 101 mmol/L (98-107); Globulin 3.6 g/dL (2.4-3.5); Glucose 100 mg/dL (70-105); Lipase 28 U/L (8-78); Potassium 3.6 mmol/L (3.5-5.1); Protein, Total 7.9 g/dL (6.0-8.3); Sodium 139 mmol/L (136-145)
[2021-11-13] MEDS ORDERED: Amlodipine 5 MG TAB ONE (15:32)
== END 2021-11-13 16:36 | disposition home or self-care (01) ==
LOC: ERS 14:05
DX: F10.239 Alcohol dependence with withdrawal, unspecified (principal); I10 Essential (primary) hypertension; F17.210 Nicotine dependence, cigarettes, uncomplicated; R74.8 Abnormal levels of other serum enzymes; Z87.19 Personal history of other diseases of the digestive system; Z79.899 Other long term (current) drug therapy
CPT/HCPCS: 36415; 80053; 82550; 83690; 84443; 84484; 85025; 93005; 96361; 96374; J2060

== ENCOUNTER 2022-02-11 13:48 | Emergency (ER) | payer SELFPAY ==
[2022-02-11] MEDS ORDERED: Ondansetron PF 4 MG/2 ML Vial ONE (14:15)
[2022-02-11 14:33] LABS: #Basophils 0.2 thou/uL (0.0-0.2); #Eosinphils 0.4 thou/uL (0.0-0.7); #Lymphocytes 2.5 thou/uL (1.20-3.40); #Monocytes 0.6 thou/uL (0.11-0.59); #Neutrophils 4.9 thou/uL (1.40-6.50); %Basophils 2.1 % (0.0-1.0); %Eosinophils 4.7 % (0.0-10.0); %Monocytes 6.6 % (0.0-10.0); %Neutrophils 57.6 % (42.0-75.0); Hemoglobin 11.4 g/dL (12.0-16.0); Mean Corpuscular HGB CONC 32.9 g/dL (32.0-36.0); Mean Corpuscular Hemoglobin 28.3 pg (27.0-31.0); Mean Corpuscular Volume 85.9 fL (78.0-98.0); Mean Platelet Volume 7.8 fL (7.4-10.4); Platelet Count 253 thou/uL (130-400); RBC Distribution Width 18.8 % (11.5-14.5); Red Blood Cell (RBC) Count 4.04 mill/uL (4.20-5.40); White Blood Cell (WBC) Count 8.5 thou/uL (4.8-10.8)
[2022-02-11 14:41] LABS: BHCG - Serum Negative (NEGATIVE); Pregs Control Background? CLEAR/WHITE (CLR/WHITE); Pregs Control Bar Appear? YES (CONTROL BAR)
[2022-02-11 14:51] LABS: ALT (SGPT) 57 U/L (8-55); AST (SGOT) 81 U/L (5-34); Alkaline Phosphatase 84 U/L (40-110); Anion Gap 20 mmol/L (10-20); BUN (Urea Nitrogen) 8 mg/dL (7.0-18.7); Bilirubin, Total 1.5 mg/dL (0.2-1.2); CK (CPK) 541 U/L (29-168); Calc. Creatinine Clearance 0 mL/min (70-130); Calcium 9.6 mg/dL (7.8-10.44); Carbon Dioxide 20 mmol/L (22-29); Chloride 100 mmol/L (98-107); Estimated GFR 93; Globulin 3.9 g/dL (2.4-3.5); Glucose 107 mg/dL (70-105); Lipase 204 U/L (8-78); Potassium 3.5 mmol/L (3.5-5.1); Protein, Total 7.9 g/dL (6.0-8.3); Sodium 136 mmol/L (136-145)
== END 2022-02-11 15:32 | disposition home or self-care (01) ==
LOC: ERS 13:48
DX: F10.10 Alcohol abuse, uncomplicated (principal); R79.89 Other specified abnormal findings of blood chemistry
CPT/HCPCS: 80053; 82550; 83690; 84703; 85025; 93005; 96374; 96375; J2405; J3411

== ENCOUNTER 2023-10-29 12:59 | Inpatient (IN) | payer OTHER ==
[~2023-10-29 12:59] MED LIST: Iopamidol-370 76% 500 ML MDV (1 ML CHARGE) ONE
[2023-10-29 13:31] LABS: #Basophils Less than 0.03 10x3/uL (0.0-0.2); #Eosinphils Less than 0.03 10x3/uL (0.0-0.7); %Basophils 0.2 % (0.0-1.0); %Lymphocytes 9.4 % (21.0-51.0); %Monocytes 4.7 % (0.0-10.0); Hemoglobin 12.6 g/dL (12.0-16.0); Mean Corpuscular HGB CONC 34.1 g/dL (32.0-36.0); Mean Corpuscular Hemoglobin 32.3 pg (27.0-31.0); Mean Corpuscular Volume 94.9 fL (78.0-98.0); Mean Platelet Volume 10.4 fL (7.4-10.4); Platelet Count 108 10x3/uL (130-400); RBC Distribution Width 17.3 % (11.5-14.5)
[2023-10-29 13:36] LABS: Alcohol 54.2 mg/dL (Less than 10)
[2023-10-29 13:40] LABS: ALT (SGPT) 40 U/L (8-55); AST (SGOT) 151 U/L (5-34); Albumin 3.2 g/dL (3.5-5.0); Alkaline Phosphatase 89 U/L (40-110); Anion Gap 24 mmol/L (10-20); BUN (Urea Nitrogen) 4 mg/dL (7.0-18.7); Bilirubin, Total 2.3 mg/dL (0.2-1.2); Calc. Creatinine Clearance 0 mL/min (70-130); Calcium 8.8 mg/dL (7.8-10.44); Carbon Dioxide 20 mmol/L (22-29); Chloride 97 mmol/L (98-107); Estimated GFR 118; Glucose 99 mg/dL (70-105); Potassium 2.9 mmol/L (3.5-5.1); Protein, Total 8.2 g/dL (6.0-8.3); Sodium 138 mmol/L (136-145)
[2023-10-29 13:49] LABS: Lipase 1070 U/L (8-78)
[2023-10-29 13:51] LABS: Burr Cells SLIGHT = 2-5 cells HPF (0-1); Ovalocytes SLIGHT = 2-5 cells HPF (0-1); Platelet Adequacy Comment Platelets Decreased; Poikilocytosis SLIGHT = 6-15 cells HPF (0-5); Polychromasia SLIGHT = 2-3 cells HPF (0-2); Target Cells SLIGHT = 2-5 cells HPF (0-1); Tear Drops SLIGHT = 2-5 cells HPF (0-1)
[2023-10-29] MEDS ORDERED: Thiamine HCl 200 MG/2 ML VIAL ONE (14:03)
[2023-10-29] MEDS ORDERED: LORazepam 2 MG/ML SYR.(CARPUJECT) ONE (14:03)
[2023-10-29] MEDS ORDERED: fentaNYL 50 mcg/mL 1 mL Vial ONE ×3 (14:04→20:46)
[2023-10-29] MEDS ORDERED: Ondansetron PF 4 MG/2 ML Vial ONE (14:06)
[2023-10-29 14:53] LABS: Magnesium 1.1 mg/dL (1.6-2.6)
[2023-10-29] MEDS ORDERED: Potassium Chloride 20 MEQ (100 mL) BAG ONE (14:56)
[2023-10-29 16:38] LABS: BHCG - Serum Negative (NEGATIVE); Pregs Control Background? CLEAR/WHITE (CLR/WHITE); Pregs Control Bar Appear? YES (CONTROL BAR)
[2023-10-29 16:46] LABS: Troponin I Less than 0.010 ng/mL (< 0.028)
[2023-10-29] MEDS ORDERED: Magnesium 2 GM/50 ML BAG (IN WATER) ONE (19:12)
[2023-10-29 19:14] LABS: Phosphorus 3.2 mg/dL (2.3-4.7)
[2023-10-29] MEDS ORDERED: Ondansetron ODT 4 MG TAB PO PRN (20:00)
[2023-10-29] MEDS ORDERED: Lorazepam 1 MG TAB PO PRN (20:00)
[2023-10-29] MEDS ORDERED: Electrolyte Replacement Protocol 1 EACH FS SCH (20:00)
[2023-10-29] MEDS ORDERED: Ondansetron PF 4 MG/2 ML Vial IVP PRN (20:00)
[2023-10-29] MEDS ORDERED: Lorazepam 2 MG/ML VIAL IM PRN (20:00)
[2023-10-29] MEDS: Magnesium 2 GM/50 ML(in water) 2 GM in Premix 1 BAG IVPB SCH (21:26)
[2023-10-29] MEDS: Potassium Chloride 20 MEQ in Premix 1 BAG IVPB SCH (21:26)
[2023-10-29 21:30] VITALS: BMI 34.6
[2023-10-29] MEDS: Folic Acid 1 MG in Syringe 0 ML IVP SCH (22:05)
[2023-10-29] MEDS: Morphine 4 MG/ML VIAL SLOW IVP PRN (22:12)
[2023-10-29] MEDS: Multivit, Therapeutic 1 TAB PO SCH (22:12)
[2023-10-29] MEDS: Lactated Ringer's 1,000 ML IV SCH (22:14)
[2023-10-29 23:46] LABS: Anion Gap 15 mmol/L (10-20); BUN (Urea Nitrogen) Less than 4 mg/dL (7.0-18.7); Calc. Creatinine Clearance 186 mL/min (70-130); Calcium 8.2 mg/dL (7.8-10.44); Carbon Dioxide 24 mmol/L (22-29); Chloride 100 mmol/L (98-107); Estimated GFR 120; Glucose 87 mg/dL (70-105); Potassium 2.8 mmol/L (3.5-5.1)
[2023-10-29 23:58] LABS: Sodium 136 mmol/L (136-145)
[2023-10-30] MEDS ORDERED: Potassium Phosphate 30 MMOL in Sodium Chloride 0.9% 500 ML IVPB SCH (00:15)
[2023-10-30] MEDS: Lorazepam 1 MG TAB PO SCH (00:39)
[2023-10-30 05:42] LABS: #Basophils Less than 0.03 10x3/uL (0.0-0.2); #Eosinphils Less than 0.03 10x3/uL (0.0-0.7); %Basophils 0.1 % (0.0-1.0); %Eosinophils 0.2 % (0.0-10.0); %Lymphocytes 13.1 % (21.0-51.0); %Monocytes 5.8 % (0.0-10.0); %Neutrophils 80.1 % (42.0-75.0); Hematocrit 30.7 % (36.0-47.0); Hemoglobin 10.6 g/dL (12.0-16.0); Mean Corpuscular HGB CONC 34.5 g/dL (32.0-36.0); Mean Corpuscular Hemoglobin 33.7 pg (27.0-31.0); Mean Corpuscular Volume 97.5 fL (78.0-98.0); Mean Platelet Volume 11.7 fL (7.4-10.4); Platelet Count 85 10x3/uL (130-400); RBC Distribution Width 17.4 % (11.5-14.5); Red Blood Cell (RBC) Count 3.15 mill/uL (4.20-5.40)
[2023-10-30 06:08] LABS: ALT (SGPT) 32 U/L (8-55); AST (SGOT) 84 U/L (5-34); Albumin 2.7 g/dL (3.5-5.0); Alkaline Phosphatase 70 U/L (40-110); Anion Gap 15 mmol/L (10-20); BUN (Urea Nitrogen) Less than 4 mg/dL (7.0-18.7); Bilirubin, Total 2.5 mg/dL (0.2-1.2); Calc. Creatinine Clearance 199 mL/min (70-130); Calcium 8.1 mg/dL (7.8-10.44); Carbon Dioxide 25 mmol/L (22-29); Chloride 97 mmol/L (98-107); Estimated GFR 121; Glucose 80 mg/dL (70-105); Lipase 580 U/L (8-78); Phosphorus 1.4 mg/dL (2.3-4.7); Protein, Total 6.7 g/dL (6.0-8.3); Sodium 134 mmol/L (136-145)
[2023-10-30] MEDS: Potassium Chloride 20 MEQ TAB PO SCH (08:45)
[2023-10-30] MEDS: PHOS-NAK 1 PKT PACK PO SCH (08:45)
[2023-10-30] MEDS: Magnesium Sulfate In Water 4 GM in Premix 1 BAG IVPB SCH (08:45)
[2023-10-30] MEDS: Folic Acid 1 MG TAB PO SCH (08:45)
[2023-10-30] MEDS: Acetaminophen 325 MG TAB PO PRN (16:09)
[2023-10-30] MEDS: Thiamine HCl 200 MG/2 ML VIAL SLOW IVP SCH (16:10)
[2023-10-30] MEDS: cloNIDine 0.1 MG TAB PO PRN (16:10)
[2023-10-30] MEDS: Magnesium Oxide 400 MG TAB PO SCH ×2 (16:23→21:49)
[2023-10-30] MEDS ORDERED: Lorazepam 1 MG TAB PO PRN (20:00)
[2023-10-31 05:05] LABS: #Basophils 0.03 10x3/uL (0.0-0.2); %Basophils 0.4 % (0.0-1.0); %Eosinophils 1.7 % (0.0-10.0); %Lymphocytes 19.6 % (21.0-51.0); %Monocytes 6.4 % (0.0-10.0); %Neutrophils 71.4 % (42.0-75.0); Hemoglobin 10.8 g/dL (12.0-16.0); Mean Corpuscular HGB CONC 34.8 g/dL (32.0-36.0); Mean Corpuscular Hemoglobin 32.8 pg (27.0-31.0); Mean Corpuscular Volume 94.2 fL (78.0-98.0); Mean Platelet Volume 11.9 fL (7.4-10.4); Platelet Count 89 10x3/uL (130-400); RBC Distribution Width 16.7 % (11.5-14.5); Red Blood Cell (RBC) Count 3.29 mill/uL (4.20-5.40)
[2023-10-31 05:41] LABS: ALT (SGPT) 27 U/L (8-55); AST (SGOT) 57 U/L (5-34); Albumin 2.4 g/dL (3.5-5.0); Alkaline Phosphatase 69 U/L (40-110); Anion Gap 17 mmol/L (10-20); BUN (Urea Nitrogen) Less than 4 mg/dL (7.0-18.7); Bilirubin, Total 2.4 mg/dL (0.2-1.2); Calc. Creatinine Clearance 205 mL/min (70-130); Calcium 8.1 mg/dL (7.8-10.44); Carbon Dioxide 25 mmol/L (22-29); Chloride 99 mmol/L (98-107); Estimated GFR 122; Globulin 3.8 g/dL (2.4-3.5); Glucose 91 mg/dL (70-105); Magnesium 1.5 mg/dL (1.6-2.6); Phosphorus 2.8 mg/dL (2.3-4.7); Potassium 2.8 mmol/L (3.5-5.1); Protein, Total 6.2 g/dL (6.0-8.3); Sodium 138 mmol/L (136-145)
[2023-10-31] MEDS: Magnesium 2 GM/50 ML(in water) 2 GM in Premix 1 BAG IVPB SCH (08:56)
[2023-10-31] MEDS: Potassium Chloride 20 MEQ in Premix 1 BAG IVPB SCH (08:57)
[2023-10-31] MEDS: Sodium Chloride 0.9% 1,000 ML IV SCH (14:00)
[2023-10-31] MEDS ORDERED: Potassium Chloride 20 MEQ TAB PO SCH ×2 (15:36→17:00)
[2023-10-31 15:56] VITALS: BP 136/74; TEMP 98.2
[2023-10-31] MEDS ORDERED: Lorazepam 1 MG TAB PO PRN (20:00)
[2023-10-31] MEDS ORDERED: Lorazepam 0.5 MG TAB PO SCH (20:00)
[2023-11-01] MEDS ORDERED: Thiamine 100 MG TAB PO SCH (09:00)
[2023-11-01] MEDS ORDERED: Lorazepam 0.5 MG TAB PO PRN (20:00)
== END 2023-10-31 16:55 | disposition home or self-care (01) | DRG 439 ==
LOC: ERS 12:59 → 2SW 18:27
PROVIDERS: ADMIT Internal Medicine; ATTEND Internal Medicine
DX: K85.90 Acute pancreatitis without necrosis or infection, unspecified (principal); F10.239 Alcohol dependence with withdrawal, unspecified; E83.42 Hypomagnesemia; E87.6 Hypokalemia; Z88.8 Allergy status to other drugs, medicaments and biological substances; I10 Essential (primary) hypertension; Z98.890 Other specified postprocedural states; F17.210 Nicotine dependence, cigarettes, uncomplicated; D69.6 Thrombocytopenia, unspecified; Z79.899 Other long term (current) drug therapy
CPT/HCPCS: 36415; 36416; 74177; 80053; 80307; 83605; 83690; 83735; 84100; 84478; 84484; 84703; 85025; 93005; 96374; 96375; 96376; J2060; J2270; J2405; J3010; J3411; J3475; J3480; J7050; J7120; Q9967

== ENCOUNTER 2024-03-31 19:57 | Inpatient (IN) | payer BC, OTHER ==
[2024-03-31 20:50] LABS: #Basophils 0.04 10x3/uL (0.0-0.2); %Basophils 0.7 % (0.0-1.0); %Eosinophils 2.1 % (0.0-10.0); %Lymphocytes 33.8 % (21.0-51.0); %Monocytes 7.2 % (0.0-10.0); %Neutrophils 55.9 % (42.0-75.0); Hematocrit 39.1 % (36.0-47.0); Hemoglobin 13.3 g/dL (12.0-16.0); Mean Corpuscular Hemoglobin 32.4 pg (27.0-31.0); Mean Corpuscular Volume 95.1 fL (78.0-98.0); Mean Platelet Volume 9.3 fL (7.4-10.4); Platelet Count 210 10x3/uL (130-400); RBC Distribution Width 13.6 % (11.5-14.5); Red Blood Cell (RBC) Count 4.11 mill/uL (4.20-5.40)
[2024-03-31 21:19] LABS: BHCG - Serum Negative (NEGATIVE); Pregs Control Background? CLEAR/WHITE (CLR/WHITE); Pregs Control Bar Appear? YES (CONTROL BAR)
[2024-03-31 21:20] LABS: Lipase 99 U/L (8-78)
[2024-03-31 21:23] LABS: Acetaminophen Less than 10 mcg/mL (Less than 10); Alcohol 396.9 mg/dL (Less than 10); Salicylate Less than 8.0 mg/dL (Less than 8.0)
[2024-03-31 21:35] LABS: ALT (SGPT) 54 U/L (8-55); AST (SGOT) 186 U/L (5-34); Alkaline Phosphatase 130 U/L (40-110); Anion Gap 19 mmol/L (10-20); BUN (Urea Nitrogen) Less than 4 mg/dL (7.0-18.7); Bilirubin, Total 1.6 mg/dL (0.2-1.2); CK (CPK) 1327 U/L (29-168); Calc. Creatinine Clearance 0 mL/min (70-130); Calcium 8.5 mg/dL (7.8-10.44); Carbon Dioxide 24 mmol/L (22-29); Chloride 102 mmol/L (98-107); Estimated GFR 120; Globulin 5.5 g/dL (2.4-3.5); Glucose 92 mg/dL (70-105); Potassium 2.5 mmol/L (3.5-5.1); Protein, Total 8.5 g/dL (6.0-8.3); Sodium 142 mmol/L (136-145)
[2024-04-01] MEDS ORDERED: Potassium Chloride 20 MEQ TAB ONE (02:44)
[2024-04-01] MEDS ORDERED: NS 0.9% w/ 20 MEQ KCL 1,000 ML ONE (02:44)
[2024-04-01 03:33] LABS: Alcohol 292.9 mg/dL (Less than 10)
[2024-04-01 03:34] LABS: Anion Gap 17 mmol/L (10-20); BUN (Urea Nitrogen) Less than 4 mg/dL (7.0-18.7); Calc. Creatinine Clearance 0 mL/min (70-130); Calcium 8.1 mg/dL (7.8-10.44); Carbon Dioxide 25 mmol/L (22-29); Chloride 104 mmol/L (98-107); Estimated GFR 120; Glucose 68 mg/dL (70-105); Potassium 2.7 mmol/L (3.5-5.1); Sodium 143 mmol/L (136-145)
[2024-04-01] MEDS ORDERED: Magnesium 2 GM/50 ML BAG (IN WATER) ONE ×2 (03:46→11:32)
[2024-04-01] MEDS ORDERED: hydrALAZINE 20 MG/ML VIAL ONE (05:24)
[2024-04-01] MEDS ORDERED: chlordiazePOXIDE HCl 25 MG CAP ONE (06:07)
[2024-04-01 06:23] LABS: Bilirubin Negative (Negative); Blood, Urine Negative (Negative); CAUTI Indications for Culture Alt mental st,lethar; Clarity Clear (Clear); Glucose, Urine (Dipstick) Normal (Negative); Ketone, Urine Negative (Negative); Leukocyte Negative Leu/uL (Negative); Nitrite Negative (Negative); Protein, Urine (Dipstick) Negative (Neg-Trace); RBC/HPF 0-3 HPF (0-3); Specific Gravity, Urine 1.004 (1.002-1.036); WBC/HPF 0-3 HPF (0-3)
[2024-04-01 06:25] LABS: Amphetamine Not Detected (NotDetected); Bacteria/HPF 1+ HPF (None Seen); Barbiturates Screen Not Detected (NotDetected); Benzodiazepine Screen Not Detected (NotDetected); Cocaine Metabolite Screen Not Detected (NotDetected); Methadone Not Detected (NotDetected); Methamphetamine Not Detected (NotDetected); Opiate Screen Not Detected (NotDetected); Oxycodone Screen Not Detected (NotDetected); Phencyclidine (PCP) Not Detected (NotDetected); THC/Cannabinoid Screen Not Detected (NotDetected); Tricyclic Screen Not Detected (NotDetected); Urine Culture Reflex No No
[2024-04-01] MEDS ORDERED: Lorazepam 2 MG/ML VIAL ONE (07:24)
[2024-04-01] MEDS ORDERED: Thiamine HCl 200 MG/2 ML VIAL ONE (07:24)
[2024-04-01 07:59] LABS: Troponin I Less than 0.010 ng/mL (< 0.028)
[2024-04-01 08:23] LABS: Anion Gap 17 mmol/L (10-20); BUN (Urea Nitrogen) Less than 4 mg/dL (7.0-18.7); CK (CPK) 1064 U/L (29-168); Calc. Creatinine Clearance 0 mL/min (70-130); Calcium 7.6 mg/dL (7.8-10.44); Carbon Dioxide 25 mmol/L (22-29); Chloride 104 mmol/L (98-107); Estimated GFR 121; Glucose 90 mg/dL (70-105); Potassium 2.8 mmol/L (3.5-5.1); Sodium 143 mmol/L (136-145)
[2024-04-01] MEDS: FOLIC ACID IVP SCH (08:25)
[2024-04-01] MEDS: ADMIXTURE FEE CHEMO IVP SCH (08:25)
[2024-04-01] MEDS ORDERED: Potassium Chloride 20 MEQ (100 mL) BAG ONE (08:48)
[2024-04-01] MEDS ORDERED: Nicotine 14 MG PATCH TD PRN (09:14)
[2024-04-01] MEDS ORDERED: Lorazepam 1 MG TAB PO PRN (09:14)
[2024-04-01] MEDS ORDERED: Lorazepam 2 MG/ML VIAL IM PRN (09:14)
[2024-04-01] MEDS ORDERED: Electrolyte Replacement Protocol 1 EACH FS SCH (09:15)
[2024-04-01 09:22] LABS: Magnesium 1.7 mg/dL (1.6-2.6)
[2024-04-01] MEDS ORDERED: Metoclopramide HCl 10 MG (2 mL) VIAL IVP PRN (09:24)
[2024-04-01] MEDS ORDERED: hydrALAZINE 20 MG/ML VIAL SLOW IVP PRN (09:25)
[2024-04-01 09:39] VITALS: BMI 29.1
[2024-04-01] MEDS ORDERED: Electrolyte Replacement Protocol FS PRN (10:00)
[2024-04-01] MEDS: Magnesium 2 GM/50 ML(in water) 2 GM in Premix 1 BAG IVPB SCH ×2 (11:32→20:00)
[2024-04-01] MEDS ORDERED: Lorazepam 1 MG TAB ONE (11:32)
[2024-04-01] MEDS ORDERED: Multivit, Therapeutic 1 TAB ONE (11:32)
[2024-04-01] MEDS ORDERED: Pantoprazole 40 MG VIAL ONE (11:33)
[2024-04-01] MEDS: Multivit, Therapeutic 1 TAB PO SCH (11:35)
[2024-04-01] MEDS: Lorazepam 1 MG TAB PO SCH (11:35)
[2024-04-01] MEDS: NS 0.9% w/ 40 MEQ KCL 1,000 ML IV SCH ×3 (12:15→18:12)
[2024-04-01] MEDS: Pantoprazole 40 MG VIAL IVP SCH (12:45)
[2024-04-01] MEDS: Potassium Chloride 20 MEQ TAB PO SCH ×2 (17:21→20:00)
[2024-04-01 17:31] LABS: Anion Gap 14 mmol/L (10-20); BUN (Urea Nitrogen) Less than 4 mg/dL (7.0-18.7); Calc. Creatinine Clearance 164 mL/min (70-130); Calcium 7.9 mg/dL (7.8-10.44); Carbon Dioxide 25 mmol/L (22-29); Chloride 102 mmol/L (98-107); Estimated GFR 119; Glucose 90 mg/dL (70-105); Magnesium 1.8 mg/dL (1.6-2.6); Potassium 3.3 mmol/L (3.5-5.1); Sodium 138 mmol/L (136-145)
[2024-04-01] MEDS: Amlodipine 5 MG TAB PO SCH (20:00)
[2024-04-01] MEDS ORDERED: Famotidine/PF 20 mg/2ml Vial SLOW IVP SCH (21:00)
[2024-04-02 00:44] LABS: Potassium 3.8 mmol/L (3.5-5.1)
[2024-04-02 04:05] LABS: #Basophils 0.03 10x3/uL (0.0-0.2); %Basophils 0.5 % (0.0-1.0); %Eosinophils 2.3 % (0.0-10.0); %Lymphocytes 30.9 % (21.0-51.0); %Monocytes 6.8 % (0.0-10.0); %Neutrophils 59.3 % (42.0-75.0); Hematocrit 34.1 % (36.0-47.0); Hemoglobin 11.4 g/dL (12.0-16.0); Mean Corpuscular HGB CONC 33.4 g/dL (32.0-36.0); Mean Corpuscular Hemoglobin 32.3 pg (27.0-31.0); Mean Corpuscular Volume 96.6 fL (78.0-98.0); Mean Platelet Volume 9.8 fL (7.4-10.4); Platelet Count 188 10x3/uL (130-400); RBC Distribution Width 13.2 % (11.5-14.5); Red Blood Cell (RBC) Count 3.53 mill/uL (4.20-5.40)
[2024-04-02 04:25] LABS: Anion Gap 13 mmol/L (10-20); BUN (Urea Nitrogen) Less than 4 mg/dL (7.0-18.7); CK (CPK) 913 U/L (29-168); Calc. Creatinine Clearance 187 mL/min (70-130); Calcium 8.1 mg/dL (7.8-10.44); Carbon Dioxide 21 mmol/L (22-29); Chloride 105 mmol/L (98-107); Estimated GFR 123; Glucose 81 mg/dL (70-105); Potassium 3.7 mmol/L (3.5-5.1); Sodium 135 mmol/L (136-145)
[2024-04-02] MEDS ORDERED: Lorazepam 1 MG TAB PO PRN (09:14)
[2024-04-02] MEDS: Folic Acid 1 MG TAB PO SCH (09:31)
[2024-04-02] MEDS: Enoxaparin 40 MG (0.4 mL) SYRINGE SC SCH (09:31)
[2024-04-02] MEDS: Pantoprazole DR 40 MG TAB PO SCH (09:31)
[2024-04-02] MEDS: Multivit, Therapeutic 1 TAB PO SCH (09:31)
[2024-04-02] MEDS: Thiamine 100 MG TAB PO SCH (09:31)
[2024-04-02] MEDS: Magnesium 2 GM/50 ML(in water) 2 GM in Premix 1 BAG IVPB SCH (09:31)
[2024-04-02 14:07] VITALS: BP 155/102; TEMP 98.8
[2024-04-03] MEDS ORDERED: Lorazepam 1 MG TAB PO PRN (09:14)
[2024-04-03] MEDS ORDERED: Lorazepam 0.5 MG TAB PO SCH (11:00)
[2024-04-04] MEDS ORDERED: Lorazepam 0.5 MG TAB PO PRN (09:14)
== END 2024-04-02 15:39 | disposition home or self-care (01) | DRG 897 ==
LOC: EEVIPCON 19:57 → ERS 19:57 → ERHOLD 04-01 08:50 → IMCU/EMU 04-01 16:08 → T4-A 04-02 14:01
PROVIDERS: ADMIT Family Medicine; ATTEND Hospitalist
DX: F10.239 Alcohol dependence with withdrawal, unspecified (principal); R45.851 Suicidal ideations; M62.82 Rhabdomyolysis; E87.6 Hypokalemia; I10 Essential (primary) hypertension; Y90.8 Blood alcohol level of 240 mg/100 ml or more; Z88.8 Allergy status to other drugs, medicaments and biological substances; Z90.49 Acquired absence of other specified parts of digestive tract; F39 Unspecified mood [affective] disorder
CPT/HCPCS: 36415; 71045; 80048; 80053; 80306; 80307; 81001; 82550; 83690; 83735; 83880; 84443; 84484; 84703; 85025; 93005; J0360; J1650; J2060; J2470; J3411; J3475; J3480